=== PATIENT | male | born 1995 | race Two or more races ===

== ENCOUNTER 2024-08-16 13:22 | Inpatient (IN) | payer MEDICAID, OTHER ==
[~2024-08-16] VITALS: Ht 188 cm; Wt 161.1 kg
--- NOTE | 2024-08-16 13:35 | ED.PDOC ---
HPI Comments CRISTEL Calhoun: Poor Historian. 29-year-old male presents to emergency department for evaluation of chest pain 6/10 scale nonradiating constant with the associated shortness of breath. He also presents for evaluation of bilateral lower extremity swelling edema. pt states he has been these symptoms for the past 1 month. Patient denies any past medical history or surgical history. Denies taking any medications. Past Medical History: denies Past Surgical History: denies medications: denies allergies: nkda Social History: endorses tobacco use, denies ETOH use, denies drug use REVIEW OF SYSTEMS: CONSTITUTIONAL: Denies acute: fever, diaphoresis, chills, HEAD: Denies acute: headache, photophobia Eyes: Denies acute: Double vision, vision loss, eye pain, eye discharge. EARS: Denies acute: tinnitus, hearing loss, ear discharge, ear pain, THROAT: Denies acute: sore throat, swelling, difficulty swallowing , pain with swallowing, change in voice. NECK: Denies acute: neck pain, neck swelling, stiff neck. HEART: Denies acute : palpitations, LUNGS: Denies acute: wheezing, cough, hemoptysis ABDOMEN: Denies acute: abdominal pain, Nausea, Vomiting, diarrhea, melena , hematemesis, hematochezia SKIN: Denies acute: rash, redness, lesions, itchiness. EXTREMITIES: Denies acute: calf pain, numbness, tingling, weakness, Denies acute: Low back pain. Neuro: Denies acute: focal neurological deficit, motor or sensory focal neurological deficit, tremors, seizure like activity, confusion, dizziness, change in mental status, loss of bowel or bladder function, cauda equina like symptoms. : Denies acute: dysuria, hematuria, flank pain, increase in urinary frequency. PSYCH: Denies acute: hallucination, suicidal ideation, homicidal ideation. PHYSICAL EXAM: General: mild to moderate acute distress, awake and alert. Head: normocephalic, atraumatic. Neck: supple, trachea is midline, no swelling. Throat: Normal phonation. Eyes:, no erythema, no purulent discharge, no proptosis, no icterus. Heart: regular tachycardia, no significant murmur appreciated. Lungs: no apparent respiratory distress, Able to speak in full sentences. No wheezing, no rhonchi, no crackles. No stridors Clear to auscultation bilaterally. Abdomen: non tender to palpation, non distended, soft, no guarding, no rebound, + bowel sounds. obese Neuro: Awake, Alert, oriented to name, self, situation, follows commands GCS=15. Speech is normal. Skin: no petechia, no purpura, no cyanosis, non-pale, not jaundice. Lower extremities: --4/4 b/l- Pitting edema no deformity, no focal swelling, no calf TTP. Makes eye contact. moves all four extremities. Face: no apparent facial droop. Ambulating in the ED independently. ED COURSE: Chief Complaint: Lower Extremity Time Seen by MD: 13:29 Reviewed Notes: Nurses Notes, Medications, Allergies Allergies: Coded Allergies: NO KNOWN ALLERGIES (Unverified , 08/16/24) Information Source: Patient Mode of Arrival: Ambulatory Was a procedure done? Was a procedure done?: No CP Differential Dx Differential Diagnosis: N/A Differential Diagnosis: Other (Ddx include but not limitied to gastritis, musculoskeletal pain, radiculopathy, atypical chest pain, dissection, aneurysm, ACS, unstable angina, hiatal hernia, GERD, anxiety, costochondritis, PE, pneumothroax, neoplasm, cardiac ischemia, drug abuse, anemia. As far as the shortness of breath Leg swellingDdx include but not limited to DVT, ischemic limb, pitting edema, volume overload, CHF, cellulitis, hematoma, compartment syndrome, dependent edema, venous stasis. As far as the dyspnea DDx include ACS, unstable angina, anxiety, PE, pneumothroax, neoplasm, cardiac ischemia, COPD, asthma, CHF, pleural effusion, tobacco abuse, pneumonia, hypoxia, hypercapnia, anemia., infection/sepsis., pulmonary edema. Asthma, Cardiac tamponade, infection.) X-Ray, Labs, Meds, VS Vital Signs Date Time Temp Pulse Resp B/P (MAP) Pulse Ox O2 Delivery O2 Flow Rate FiO2 08/16/24 16:41 98.0 100 18 139/96 (110) 97 98.0 08/16/24 15:57 149/86 08/16/24 15:29 98.7 88 20 149/86 (107) 97 98.7 08/16/24 15:29 88 20 97 Room Air 08/16/24 15:21 98.7 88 149/96 (113) 97 98.7 08/16/24 13:33 105 08/16/24 13:31 98.0 115 22 154/102 (119) 99 98.0 Lab Test 08/16/24 16:23 08/16/24 14:29 08/16/24 13:46 08/16/24 13:40 Range/Units Troponin I High Sensitivity 30 30 29 </=54 ng/L White Blood Count 6.1 4.4-10.8 10^3/uL Red Blood Count 5.02 4.5-5.90 10^6/uL Hemoglobin 14.4 13.5-17.5 g/dL Hematocrit 44.3 41.0-53.0 % Mean Corpuscular Volume 88.3 80.0-100.0 fL Mean Corpuscular Hemoglobin 28.6 28.0-32.0 pg Mean Corpuscular Hemoglobin Concent 32.4 32.0-36.0 g/dL Red Cell Distribution Width 15.2 H 11.8-14.3 % Platelet Count 250 140-450 10^3/uL Mean Platelet Volume 9.2 6.9-10.8 fL Neutrophils (%) (Auto) 64.1 37.0-80.0 % Lymphocytes (%) (Auto) 24.9 10.0-50.0 % Monocytes (%) (Auto) 6.8 0.0-12.0 % Eosinophils (%) (Auto) 3.1 0.0-7.0 % Basophils (%) (Auto) 1.1 0.0-2.0 % Neutrophils # (Auto) 3.9 1.6-8.6 10 ^3/uL Lymphocytes # (Auto) 1.5 0.4-5.4 10 ^3/uL Monocytes # (Auto) 0.4 0-1.3 10 ^3/uL Eosinophils # (Auto) 0.2 0-0.8 10 ^3/uL Basophils # (Auto) 0.1 0-0.2 10 ^3/uL Nucleated Red Blood Cells 0.0 % Erythrocyte Sedimentation Rate 2 0-20 mm/hr D-Dimer, Quantitative 0.88 H 0.0-0.49 mg/L FEU Sodium Level 142 136-145 mmol/L Potassium Level 4.4 3.5-5.1 mmol/L Chloride Level 110 H 98-107 mmol/L Carbon Dioxide Level 22 20-31 mmol/L Anion Gap 10 5-15 Blood Urea Nitrogen 14 9-23 mg/dL Creatinine 1.04 0.700-1.30 mg/dL Glomerular Filtration Rate Calc 99 >90 mL/min BUN/Creatinine Ratio 13.5 10.0-20.0 Serum Glucose 104 74-106 mg/dL Lactic Acid Level 1.1 0.4-2.0 mmol/L Calcium Level 9.2 8.7-10.4 mg/dL Magnesium Level 1.8 1.6-2.6 mg/dL Total Bilirubin 1.1 H 0.2-1.0 mg/dL Aspartate Amino Transferase (AST) 43 H 13-40 U/L Alanine Aminotransferase (ALT) 75 H 7-40 U/L Alkaline Phosphatase 100 46-116 U/L C-Reactive Protein High Sensitivity 1.95 H <1.0 mg/dL B-Type Natriuretic Peptide 514.50 0-100 pg/mL Total Protein 5.8 5.7-8.2 g/dL Albumin 3.8 3.2-4.8 g/dL Thyroid Stimulating Hormone (TSH) 2.02 0.55-4.78 uIU/mL Hepatitis A IgM Antibody Pending Hepatitis B Surface Antigen Pending Hepatitis B Core IgM Antibody Pending Hepatitis C Antibody Pending Urine Color Yellow Yellow Urine Clarity Clear Clear Urine pH 6.0 5.0-9.0 Urine Specific [place] 1.014 1.001-1.035 Urine Protein 1+ H Negative Urine Ketones Negative Negative Urine Blood Negative Negative /uL Urine Nitrite Negative Negative Urine Bilirubin Negative Negative Urine Urobilinogen 3 H Negative mg/dL Urine Leukocyte Esterase Negative Negative /uL Urine RBC <1 0 - 3 /hpf Urine Microscopic WBC 2 0-3 /HPF Urine Squamous Epithelial Cells None seen <5 /hpf Urine Bacteria None seen None Seen /hpf Urine Glucose Normal Normal mg/dL Urine Opiates Screen Neg NEGATIVE Urine Fentanyl Screen Neg NEGATIVE Urine Barbiturates Screen Neg NEGATIVE Urine Phencyclidine Screen Neg NEGATIVE Urine Amphetamines Screen Neg NEGATIVE Urine Benzodiazepines Screen Neg NEGATIVE Urine Cocaine Screen Neg NEGATIVE Urine Cannabinoids Screen Neg NEGATIVE Current Medications Medications (Trade) Dose Ordered Sig/Bob Route Start Time Stop Time Status Last Admin Furosemide (Lasix Injection) 60 mg ONCE ONCE IV 08/16/24 15:30 08/16/24 15:38 DC 08/16/24 15:57 Aspirin (Ecotrin Enteric Coated Tablet) 325 mg ONCE ONCE PO 08/16/24 15:30 08/16/24 15:38 DC 08/16/24 15:55 [place] [id number] Ph: [phone] DIAGNOSTIC IMAGING Diagnostic Imaging Report : [id number] Signed PATIENT: CATRINA CALHOUN ACCT: [id number] UNIT: [id number] : 1995 LOC: ER ROOM / BED: / AGE / SEX: 29 / M ADM STATUS: REG ER SERVICE [id number] ORDERING PHYSICIAN: CHRIS CANTU DO PROCEDURE(s): CTACH - CT ANGIO CHEST CONTRAST REASON: cp/sob ORDER NUMBER(s): [id number], ACCESSION NUMBER(s): [id number] CTA Chest with intravenous contrast INDICATION: cp/sob COMPARISON: Chest x-ray 08/16/2024 TECHNIQUE: Multidetector spiral CTA of the chest was performed of the chest with intravenous contrast. PULMONARY ANGIOGRAPHY PROTOCOL was utilized using a bolus- tracking technique centered on the main pulmonary artery. Axial, coronal and sagittal multiplanar and MIP reformats were performed. Radiation Dose : 1. Chest: CTDI volume is 68 mGy. Dose-length product is 1145 mGy*cm Contrast: 85 mL omni [address] dose [address] are the volume Computed Tomography (CT) Dose Index (CTDIvol) and the Dose Length Product (DLP), and are measured in units of mGy and mGy-cm, respectively. These indicators are not patient dose, but values generated from the CT scanner acquisition factors. The report includes radiation exposure data for exposures received during this examination. Findings: Pulmonary artery: No central, main, or lobar pulmonary emboli. Suboptimal evaluation of the segmental / subsegmental pulmonary due to contrast bolus timing and respiratory motion artifact. Lower neck: Thyroid is poorly delineated from adjacent structures. Lungs: No focal consolidation, pleural effusion or pneumothorax. Scattered bilateral sub 6 mm pulmonary nodules, the largest measuring up to 5 mm in the right middle lobe (series 3, image 62). Heart/Vascular Structures: Moderate cardiomegaly. There is a small to moderate pericardial effusion with fluid mostly along the right heart border measuring up to 2.4 cm at that site. Lymph Nodes: No adenopathy Pleura: No pleural effusion or significant pneumothorax. Musculoskeletal: No acute osseous abnormality. Soft tissues: Skin thickening over the right upper / lateral chest. There is diffuse body wall edema in the visualized upper abdomen. Upper abdomen: There is reflux of contrast material into the IVC and hepatic veins. IMPRESSION: No large pulmonary embolism. Suboptimal evaluation of the segmental / subsegmental pulmonary arterial branches due to contrast timing and motion artifact. Moderate cardiomegaly. There is also a small to moderate pericardial effusion that is mostly along the right heart border. Reflux of contrast into the IVC and hepatic vein. This can be seen with right- sided heart failure or can also be related to artifact. Skin thickening along the right upper/ lateral chest wall. Recommend direct visualization. There is also body wall edema in the visualized upper abdomen. Multiple bilateral sub 6 mm pulmonary nodules. Consider optional CT chest in 12 months if at high risk for malignancy per Fleischner criteria. ATED BY: DESIRE HALL DO DICTATED DATE/TIME: 08/16/241627 SIGNED BY: DESIRE HALL DO SIGNED DATE/TIME: 08/16/241627 CC: [place] [address] Ph: [phone] DIAGNOSTIC IMAGING Diagnostic Imaging Report : [id number] Signed PATIENT: CATRINA CALHOUN ACCT: [id number] UNIT: [id number] : 1995 LOC: ER ROOM / BED: / AGE / SEX: 29 / M ADM STATUS: REG ER SERVICE [id number] ORDERING PHYSICIAN: CHRIS CANTU DO PROCEDURE(s): BLDVT - BiLat Lower DVT REASON: swelling sob/cp ORDER NUMBER(s): [id number], ACCESSION NUMBER(s): [id number] Bilateral lower extremity venous duplex Clinical History: swelling sob/cp Comparison: None Technique: Duplex Doppler evaluation of the deep venous systems of both lower extremities from the common femoral veins to the popliteal veins including color Doppler and spectral/pulsed waveform analysis was performed. Findings: RIGHT SIDE: The common femoral vein demonstrates appropriate compressibility and waveform variability. There is compressibility/patency of the great saphenous vein at the proximal thigh. The femoral vein demonstrates appropriate compressibility and waveform variability. The deep femoral vein demonstrates appropriate compressibility and waveform variability. The popliteal vein demonstrates appropriate compressibility and waveform variability. There is normal compressibility at the tibioperoneal trunk. LEFT SIDE: The common femoral vein demonstrates appropriate compressibility and waveform variability. There is compressibility/patency of the great saphenous vein at the proximal thigh. The femoral vein demonstrates appropriate compressibility and waveform variability. MID LEFT FEMORAL VEIN NOT VISUALIZED The deep femoral vein demonstrates appropriate compressibility and waveform variability. The popliteal vein demonstrates appropriate compressibility and waveform variability. There is normal compressibility at the tibioperoneal trunk. Impression: 1. No right or left femoropopliteal venous thrombosis. 2. MID LEFT FEMORAL VEIN NOT VISUALIZED. 3. Study difficult due to patient body habitus. HS:Y ATED BY: LEELA JAIN Jr., DO DICTATED DATE/TIME: 08/16/241414 SIGNED BY: LEELA JAIN Jr., SIGNED DATE/TIME: 08/16/241414 CC: [place] [id number] Ph: [phone] DIAGNOSTIC IMAGING Diagnostic Imaging Report : [id number] Signed PATIENT: CATRINA CALHOUN ACCT: [id number] UNIT: [id number] : 1995 LOC: ER ROOM / BED: / AGE / SEX: 29 / M ADM STATUS: REG ER SERVICE [facility] ORDERING PHYSICIAN: CHRIS CANTU DO PROCEDURE(s): CXRP - CHEST PORTABLE REASON: sob/cp ORDER NUMBER(s): [id number], ACCESSION NUMBER(s): [id number] CHEST RADIOGRAPH Indication: sob/cp Technique: Single frontal view of the chest was obtained Comparison: None FINDINGS: Lines and Tubes: None Lungs: No focal consolidation. Pleura: No effusion. No pneumothorax. Cardiomediastinal contours: Cardiomegaly without findings of congestive failure. Correlate for possible cardiomyopathy or pericardial effusion. Bones: No acute osseous abnormality. IMPRESSION: 1. Cardiomegaly without congestive failure. Correlate for possible cardiomyopathy or pericardial effusion. HS:Y ATED BY: LEELA JAIN Jr., DO DICTATED DATE/TIME: 08/16/241407 SIGNED BY: LEELA JAIN Jr., SIGNED DATE/TIME: 08/16/241407 CC: Time of 1ST Reevaluation: 21:17 Reevaluation 1ST: Improved Patient Education/Counseling: Diagnosis, Treatment Family Education/Counseling: No Family Present Comments Patient presented with the above HPI.-dyspnea/cardiac/leg swelling-----workup was initiated. patient was found with the above mentioned diagnosis. the following medications were ordered: please refer to order lists of meds and tests obtained by myself Dr. Cantu. Patient ED course and VS have been stabilized. Patient has been reassessed in the ED and remained in a stable condition. Pertinent incidental findings were discussed with the patient and/or family. Patient/family voices understanding and is agreeable with plan. Patient has been observed in the ED adequate length of time to insure improvement/stability. Escalation of care considered: Consideration of escalation to observation or admission Patient was ADMITTED to the medicine team for further evaluation and treatment of their presentation. All the reports of any imaging studies that were ordered by myself were reviewed by myself. Departure 1 Departure Time of Disposition: 15:34 Impression: Primary Impression: Chest pain at rest Additional Impressions: Dyspnea Leg swelling Pitting edema Pericardial effusion Pulmonary nodules Disposition: ADMITTED INPATIENT Admit to: [facility] Condition: Guarded Discharged With: Self Critical Care Note Critical Care Time?: Yes (55 min-critical care time only) Heart Score Heart Score: Heart Score Response (Comments) Value History Moderate Suspicious 1 EKG Normal 0 Age <45 0 Risk Factors No known risk factors 0 Troponin Normal limit 0 Total 1 I personally scribed for CHRIS CANTU DO ([email or web address]) on 08/16/24 at 13:35. Electronically submitted by Dulce Kim ([email or web address]). I personally scribed for CHRIS CANTU DO ([email or web address]) on 08/16/24 at 14:05. Electronically submitted by Dulce Kim ([email or web address]). I personally scribed for CHRIS CANTU DO ([email or web address]) on 08/16/24 at 16:37. Electronically submitted by Dulce Kim ([facility]). CHRIS CANTU DO Aug 16, 2024 13:35
--- NOTE | 2024-08-16 14:11 | DVH ---
CHEST RADIOGRAPH Indication: sob/cp Technique: Single frontal view of the chest was obtained Comparison: None FINDINGS: Lines and Tubes: None Lungs: No focal consolidation. Pleura: No effusion. No pneumothorax. Cardiomediastinal contours: Cardiomegaly without findings of congestive failure. Correlate for poss ible cardiomyopathy or pericardial effusion. Bones: No acute osseous abnormality. IMPRESSION: 1. Cardiomegaly without congestive failure. Correlate for possible cardiomyopathy or pericardial effu kellee. HS:Y
[2024-08-16 14:15] LABS: Alanine Aminotransferase 75 U/L (7-40); Albumin 3.8 g/dL (3.2-4.8); Alkaline Phosphatase 100 U/L (46-116); Anion Gap 10 (5-15); Aspartate Aminotransferase 43 U/L (13-40); BUN/Creatinine Ratio 13.5 (10.0-20.0); Bilirubin, Total 1.1 mg/dL (0.2-1.0); Blood Urea Nitrogen 14 mg/dL (9-23); Calcium 9.2 mg/dL (8.7-10.4); Carbon Dioxide 22 mmol/L (20-31); Chloride 110 mmol/L (98-107); Glucose 104 mg/dL (74-106); Potassium 4.4 mmol/L (3.5-5.1); Sodium 142 mmol/L (136-145); Total Protein 5.8 g/dL (5.7-8.2)
--- NOTE | 2024-08-16 14:18 | DVH ---
Bilateral lower extremity venous duplex Clinical History: swelling sob/cp Comparison: None Technique: Duplex Doppler evaluation of the deep venous systems of both lower extremities from the common femora l veins to the popliteal veins including color Doppler and spectral/pulsed waveform analysis was perf ormed. Findings: RIGHT SIDE: The common femoral vein demonstrates appropriate compressibility and waveform variability. There is compressibility/patency of the great saphenous vein at the proximal thigh. The femoral vein demonstrates appropriate compressibility and waveform variability. The deep femoral vein demonstrates appropriate compressibility and waveform variability. The popliteal vein demonstrates appropriate compressibility and waveform variability. There is normal compressibility at the tibioperoneal trunk. LEFT SIDE: The common femoral vein demonstrates appropriate compressibility and waveform variability. There is compressibility/patency of the great saphenous vein at the proximal thigh. The femoral vein demonstrates appropriate compressibility and waveform variability. MID LEFT FEMORAL VEIN NOT VISUALIZED The deep femoral vein demonstrates appropriate compressibility and waveform variability. The popliteal vein demonstrates appropriate compressibility and waveform variability. There is normal compressibility at the tibioperoneal trunk. Impression: 1. No right or left femoropopliteal venous thrombosis. 2. MID LEFT FEMORAL VEIN NOT VISUALIZED. 3. Study difficult due to patient body habitus. HS:Y
[2024-08-16 14:25] LABS: CRP High Sensitivity 1.95 mg/dL (<1.0)
[2024-08-16 14:35] LABS: Erythrocyte Sedimentation Rate 2 mm/hr (0-20)
[2024-08-16 15:14] LABS: Basophils # (auto) 0.1 10 ^3/uL (0-0.2); Basophils % (auto) 1.1 % (0.0-2.0); Eosinophils # (auto) 0.2 10 ^3/uL (0-0.8); Eosinophils % (auto) 3.1 % (0.0-7.0); Hematocrit 44.3 % (41.0-53.0); Hemoglobin 14.4 g/dL (13.5-17.5); Lymphocytes # (auto) 1.5 10 ^3/uL (0.4-5.4); Lymphocytes % (auto) 24.9 % (10.0-50.0); Mean Corpuscular Hemoglobin 28.6 pg (28.0-32.0); Mean Corpuscular Hgb Conc. 32.4 g/dL (32.0-36.0); Mean Corpuscular Volume 88.3 fL (80.0-100.0); Monocytes # (auto) 0.4 10 ^3/uL (0-1.3); Monocytes % (auto) 6.8 % (0.0-12.0); Neutrophils # (auto) 3.9 10 ^3/uL (1.6-8.6); Neutrophils % (auto) 64.1 % (37.0-80.0); Platelet Count (auto) 250 10^3/uL (140-450); Red Blood Cells 5.02 10^6/uL (4.5-5.90); Red Cell Distribution Width 15.2 % (11.8-14.3); White Blood Cell 6.1 10^3/uL (4.4-10.8)
[2024-08-16] MEDS: IOHEXOL 350 MG/ML 100ML IJ ONE (15:40)
[2024-08-16] MEDS: ASPirin-EC 325mg tab PO ONE (15:55)
[2024-08-16] MEDS: FUROSEMIDE 100 MG/10ML VIAL IV ONE (15:57)
--- NOTE | 2024-08-16 16:30 | DVH ---
CTA Chest with intravenous contrast INDICATION: cp/sob COMPARISON: Chest x-ray 08/16/2024 TECHNIQUE: Multidetector spiral CTA of the chest was performed of the chest with intravenous contrast . PULMONARY ANGIOGRAPHY PROTOCOL was utilized using a bolus-tracking technique centered on the main p ulmonary artery. Axial, coronal and sagittal multiplanar and MIP reformats were performed. Radiation Dose : 1. Chest: CTDI volume is 68 mGy. Dose-length product is 1145 mGy*cm Contrast: 85 mL omni [address] dose [address] are the volume Computed Tomography (CT) Dose Index (CTDIvol) and the Dose Length Product (DLP), and are measured in units of mGy and mGy-cm, respectively. These indicators are not patient dose, but values generated from the CT scanner acquisition factors. The report includes radiation exposure data for exposures received during this examination. Findings: Pulmonary artery: No central, main, or lobar pulmonary emboli. Suboptimal evaluation of the segmental / subsegmental p ulmonary due to contrast bolus timing and respiratory motion artifact. Lower neck: Thyroid is poorly delineated from adjacent structures. Lungs: No focal consolidation, pleural effusion or pneumothorax. Scattered bilateral sub 6 mm pulmona ry nodules, the largest measuring up to 5 mm in the right middle lobe (series 3, image 62). Heart/Vascular Structures: Moderate cardiomegaly. There is a small to moderate pericardial effusion w ith fluid mostly along the right heart border measuring up to 2.4 cm at that site. Lymph Nodes: No adenopathy Pleura: No pleural effusion or significant pneumothorax. Musculoskeletal: No acute osseous abnormality. Soft tissues: Skin thickening over the right upper / lateral chest. There is diffuse body wall edema in the visualized upper abdomen. Upper abdomen: There is reflux of contrast material into the IVC and hepatic veins. IMPRESSION: No large pulmonary embolism. Suboptimal evaluation of the segmental / subsegmental pulmonary arteria l branches due to contrast timing and motion artifact. Moderate cardiomegaly. There is also a small to moderate pericardial effusion that is mostly along t he right heart border. Reflux of contrast into the IVC and hepatic vein. This can be seen with right-sided heart failure or can also be related to artifact. Skin thickening along the right upper/ lateral chest wall. Recommend direct visualization. There is also body wall edema in the visualized upper abdomen. Multiple bilateral sub 6 mm pulmonary nodules. Consider optional CT chest in 12 months if at high ris k for malignancy per Fleischner criteria.
[2024-08-16 16:46] LABS: Urine Bacteria None Seen /hpf (None Seen)
[2024-08-16 16:56] LABS: Urine Blood Negative /uL (Negative); Urine Clarity Clear (Clear); Urine Color Yellow (Yellow); Urine Protein, UAD 1+ (Negative); Urine Specific Gravity 1.014 (1.001-1.035); Urine Squamous Epithelial Cell None Seen /hpf (<5); Urine Urobilinogen 3 mg/dL (Negative); Urine WBC 2 /HPF (0-3)
[2024-08-16 17:14] LABS: Amphetamine Screen, Urine Neg (NEGATIVE); Barbiturate Scree,Urine Neg (NEGATIVE); Benzodiazephine Screen, Urine Neg (NEGATIVE); Cannabinoid Screen, Urine Neg (NEGATIVE); Cocaine Screen, Urine Neg (NEGATIVE); Opiate Scree,Urine Neg (NEGATIVE); Phencyclidine Screen, Urine Neg (NEGATIVE)
[2024-08-16] MEDS ORDERED: NITROGLYCERIN 0.4 MG SL TAB SL PRN (19:30)
--- NOTE | 2024-08-16 19:34 | DVHHP2 ---
History of Present Illness Reason for Visit: chestpain and shortness of the breath History of Present Illness 29-year-old male no medical problems no surgical history chief complaint patient states he has been having some chest pain and shortness of the breath. He has also complains of bilateral lower extremity edema has been going on for about a month now. Patient states the shortness of the breath has been so bad that he had this quit his job. He states he quit his job three days ago due to when he walks he has a sit down he starts getting dizzy and he has chest pain. He does state his pain is midsternal. Nothing makes it better nothing makes it worse. He states he has not seen a primary doctor in greater than 10 years. Patient states he does smoke. He also states he lives in his car. He comes to the ER for concern. When evaluating patient's labs and imaging CBC was unremarkable CMP showed mild elevation of liver enzymes with the patient does admit that he used to drink pretty heavy he stopped about a year ago. Patient has a CRP of 1.95 troponin x3 was negative D-dimer was elevated so CT angio was pursued and found to have negative for PE but evidence of right heart failure. Chest x-ray shows cardiomegaly. With these findings we will admit and ask for Cardiology evaluation. Also ask social sciences research scientist for discharge planning since patient is homeless and sleeping in his car. Past Medical History denies any medical problems Past Surgical History denies any surgical history Family History Reviewed, non-contributory to the management of this case. Past Social History Patient does smoke by history states stopped drinking about a year ago. Denies any drug use Review of Systems Constitutional: No: Fever, Chills, Sweats, Weakness, Malaise, Other Eyes: No: Pain, Vision change, Conjunctivae inflammation, Eyelid inflammation, Other, Redness ENT: No: Ear pain, Ear discharge, Nose pain, Nose discharge, Nose congestion, Mouth pain, Mouth swelling, Throat pain, Throat swelling, Other Respiratory: Shortness of breath, SOB with excertion; No: Cough, Dry, Wheezing, Hemoptysis, Pleuritic Pain, Sputum, Wheezing, Other Cardiovascular: Chest Pain; No: Palpitations, Orthopnea, Paroxysmal Noc. Dyspnea, Edema, Lt Headedness, Other Gastrointestinal: No: Nausea, Vomiting, Abdominal Pain, Diarrhea, Constipation, Melena, Hematochezia, Other Genitourinary: No Dysuria, No Frequency, No Incontinence, No Hematuria, No Retention, No Other Musculoskeletal: No: other, neck pain, shoulder pain, arm pain, back pain, hand pain, leg pain, foot pain Skin: No: Rash, Lesions, Jaundice, Bruising, Other Neurological: No: Weakness, Numbness, Incoordination, Change in speech, Confusion, Seizures, Other Allergies: Coded Allergies: NO KNOWN ALLERGIES (Unverified , 08/16/24) Exam Vital Signs Vital Signs Date Time Temp Pulse Resp B/P (MAP) Pulse Ox O2 Delivery O2 Flow Rate FiO2 08/16/24 16:41 98.0 100 18 139/96 (110) 97 98.0 08/16/24 15:29 Room Air General Appearance: Alert, Oriented X3, Cooperative, No acute distress HEENT: Atraumatic, PERRLA, EOMI, Mucous membr. moist/pink Respiratory: Other (Diminished lung sounds throughout) Cardiovascular: Regular rate, Normal S1, Normal S2, No murmurs Abdominal: Normal bowel sounds, Soft, No tenderness, No hepatospenomegaly, No masses Extremities: No clubbing, No cyanosis, Normal pulses, No tenderness/swelling, Other (Bilateral lower extremity with edema) Skin: No rashes, No breakdown, No significant lesion Neuro: Normal gait, Normal speech, Strength at 5/5 X4 ext, Normal tone, Sensation intact, Cranial nerves 3-12 NL Psych/Mental Status: Mental status NL, Mood NL Labs/Xrays Chest x-ray shows cardiomegaly CT scan of the chest negative for PE but does shows evidence of heart failure r ight sided I reviewed labs, imaging CT scan abdomen pelvis, EKG and all diagnostic studies on this patient from ED records and the medical chart Labs Test 08/16/24 16:23 08/16/24 14:29 08/16/24 13:46 08/16/24 13:40 Range/Units Troponin I High Sensitivity 30 </=54 ng/L White Blood Count 6.1 4.4-10.8 10^3/uL Red Blood Count 5.02 4.5-5.90 10^6/uL Hemoglobin 14.4 13.5-17.5 g/dL Hematocrit 44.3 41.0-53.0 % Mean Corpuscular Volume 88.3 80.0-100.0 fL Mean Corpuscular Hemoglobin 28.6 28.0-32.0 pg Mean Corpuscular Hemoglobin Concent 32.4 32.0-36.0 g/dL Red Cell Distribution Width 15.2 H 11.8-14.3 % Platelet Count 250 140-450 10^3/uL Mean Platelet Volume 9.2 6.9-10.8 fL Neutrophils (%) (Auto) 64.1 37.0-80.0 % Lymphocytes (%) (Auto) 24.9 10.0-50.0 % Monocytes (%) (Auto) 6.8 0.0-12.0 % Eosinophils (%) (Auto) 3.1 0.0-7.0 % Basophils (%) (Auto) 1.1 0.0-2.0 % Neutrophils # (Auto) 3.9 1.6-8.6 10 ^3/uL Lymphocytes # (Auto) 1.5 0.4-5.4 10 ^3/uL Monocytes # (Auto) 0.4 0-1.3 10 ^3/uL Eosinophils # (Auto) 0.2 0-0.8 10 ^3/uL Basophils # (Auto) 0.1 0-0.2 10 ^3/uL Nucleated Red Blood Cells 0.0 % Erythrocyte Sedimentation Rate 2 0-20 mm/hr D-Dimer, Quantitative 0.88 H 0.0-0.49 mg/L FEU Sodium Level 142 136-145 mmol/L Potassium Level 4.4 3.5-5.1 mmol/L Chloride Level 110 H 98-107 mmol/L Carbon Dioxide Level 22 20-31 mmol/L Anion Gap 10 5-15 Blood Urea Nitrogen 14 9-23 mg/dL Creatinine 1.04 0.700-1.30 mg/dL Glomerular Filtration Rate Calc 99 >90 mL/min BUN/Creatinine Ratio 13.5 10.0-20.0 Serum Glucose 104 74-106 mg/dL Lactic Acid Level 1.1 0.4-2.0 mmol/L Calcium Level 9.2 8.7-10.4 mg/dL Total Bilirubin 1.1 H 0.2-1.0 mg/dL Aspartate Amino Transferase (AST) 43 H 13-40 U/L Alanine Aminotransferase (ALT) 75 H 7-40 U/L Alkaline Phosphatase 100 46-116 U/L C-Reactive Protein High Sensitivity 1.95 H <1.0 mg/dL B-Type Natriuretic Peptide 514.50 0-100 pg/mL Total Protein 5.8 5.7-8.2 g/dL Albumin 3.8 3.2-4.8 g/dL Urine Color Yellow Yellow Urine Clarity Clear Clear Urine pH 6.0 5.0-9.0 Urine Specific [place] 1.014 1.001-1.035 Urine Protein 1+ H Negative Urine Ketones Negative Negative Urine Blood Negative Negative /uL Urine Nitrite Negative Negative Urine Bilirubin Negative Negative Urine Urobilinogen 3 H Negative mg/dL Urine Leukocyte Esterase Negative Negative /uL Urine RBC <1 0 - 3 /hpf Urine Microscopic WBC 2 0-3 /HPF Urine Squamous Epithelial Cells None seen <5 /hpf Urine Bacteria None seen None Seen /hpf Urine Glucose Normal Normal mg/dL Urine Opiates Screen Neg NEGATIVE Urine Fentanyl Screen Neg NEGATIVE Urine Barbiturates Screen Neg NEGATIVE Urine Phencyclidine Screen Neg NEGATIVE Urine Amphetamines Screen Neg NEGATIVE Urine Benzodiazepines Screen Neg NEGATIVE Urine Cocaine Screen Neg NEGATIVE Urine Cannabinoids Screen Neg NEGATIVE Assessment/Plan Assessment/Plan acute new onset congested heart failure with cardiomegaly found on ct scan no pe ordered echo fu results ordered Lasix, asa. atorvastatin metoprolol strict i/o's bnp 534 cards consult fu recs restrict sodium daily wt acute chest pain r/o nstemi trop negative x2 ekg no stemi ordered echo ordered cards consult fu recs acute transaminitis likely from etoh use pt used to be chronic drinker last drink 1 yr ago ordered us fu results consider gi if abnormal results ordered hepatitis panel acute ble edema us negative for dvt elevation ordered lasix acute homelessness pt sleeping in car sw consult fu recs chronic smoker enc abstience hx of etoh abuse last use 1 yr ago fen/ppx diet scd no gi ppx since no hx of gerds or gi bleed hl plan admit to tele cards consult fu recs Plan discussed with: Patient Date of Service: Aug 16, 2024 Billing Provider: ELIAS COLLIER DNP Common Visit Codes: [id number] INP/OBS CARE (HIGH) ELIAS COLLIER DNP Aug 16, 2024 19:34
--- NOTE | 2024-08-16 21:32 | DVH ---
INDICATION: acute upper abd pain with transaminitis TECHNIQUE: Multiple real-time sonographic images of the abdomen were obtained. COMPARISON: None FINDINGS: Technically limited examination due to habitus. The liver is homogenous in echogenicity and measures 16.8 cm. No intrahepatic biliary ductal dilatat ion is noted. No hepatic masses masses were seen. The gallbladder wall measures 2 mm. There is no cholelithiasis seen. The common duct measures 6 mm . No pericholecystic fluid. The right kidney measures 10.4 cm. The right renal echogenicity, contour and cortical thickness are within normal limits. The imaged portion of the pancreas is unremarkable. IMPRESSION: 1. No sonographic evidence for cholelithiasis. 2. Borderline hepatomegaly.
[2024-08-16 22:30] VITALS: BP 136/97; PULSE 105; RESP 18; TEMP 97.7; O2SAT 96
[2024-08-16] MEDS: ATORVASTATIN 20 MG TAB PO SCH (23:32)
[2024-08-16] MEDS: METOPROLOL TARTRATE 25 MG TAB PO SCH (23:33)
[2024-08-16] MEDS: FUROSEMIDE 40 MG/4 ML VIAL IV ONE (23:34)
[2024-08-17] VITALS (9 sets, daily range): BP systolic 104–151; BP diastolic 64–97; PULSE 80–121; RESP 17–18; TEMP 97.3–97.8; O2SAT 94–100
[2024-08-17 07:11] LABS: Basophils # (auto) 0 10 ^3/uL (0-0.2); Basophils % (auto) 0.8 % (0.0-2.0); Eosinophils # (auto) 0.3 10 ^3/uL (0-0.8); Hematocrit 42.7 % (41.0-53.0); Hemoglobin 13.9 g/dL (13.5-17.5); Lymphocytes # (auto) 1.8 10 ^3/uL (0.4-5.4); Lymphocytes % (auto) 30.7 % (10.0-50.0); Mean Corpuscular Hemoglobin 28.7 pg (28.0-32.0); Mean Corpuscular Hgb Conc. 32.5 g/dL (32.0-36.0); Mean Corpuscular Volume 88.3 fL (80.0-100.0); Monocytes # (auto) 0.5 10 ^3/uL (0-1.3); Monocytes % (auto) 8.7 % (0.0-12.0); Neutrophils # (auto) 3.2 10 ^3/uL (1.6-8.6); Neutrophils % (auto) 54.8 % (37.0-80.0); Nucleated Red Blood Cells % 0.2 %; Platelet Count (auto) 235 10^3/uL (140-450); Red Blood Cells 4.83 10^6/uL (4.5-5.90); Red Cell Distribution Width 15.4 % (11.8-14.3); White Blood Cell 5.9 10^3/uL (4.4-10.8)
[2024-08-17 07:41] LABS: Albumin 3.5 g/dL (3.2-4.8); Alkaline Phosphatase 71 U/L (46-116); Anion Gap 10 (5-15); Aspartate Aminotransferase 36 U/L (13-40); Blood Urea Nitrogen 11 mg/dL (9-23); Calcium 9.4 mg/dL (8.7-10.4); Carbon Dioxide 25 mmol/L (20-31); Chloride 106 mmol/L (98-107); Glucose 94 mg/dL (74-106); Sodium 141 mmol/L (136-145); Total Protein 5.7 g/dL (5.7-8.2)
[2024-08-17 07:44] LABS: Alanine Aminotransferase 58 U/L (7-40); Bilirubin, Total 1.2 mg/dL (0.2-1.0)
[2024-08-17] MEDS: ASPirin 81 mg TAB PO SCH (09:30)
--- NOTE | 2024-08-17 12:55 | DVHINCON2 ---
Date Seen: Aug 17, 2024 Referring Physician Favian SERRANO Reason for Consultation New onset CHF History of Present Illness This 29 year male with no significant past medical history presents in the ED with a chief complaint of shortness of breath. The patient reports progressive shortness of breath for the past two weeks. Symptoms is associated with sharp chest pain worse on exertion and inhalation, dyspnea, orthopnea, and bilateral lower extremity edema. In the emergency department the patient underwent a 12 lead ECG revealing sinus rhythm with prolonged QTC. Upon assessment, the patient denies dizziness, diaphoresis, or chest pain. Denies history of CAD or [place]. Denies familiar history of cardiovascular disease. Past medical history includes tobacco use and morbid obesity. Past Medical History As stated in HPI Past Surgical History Denies Family History: Patient reports no known family medical history. Family History Reviewed, non-contributory to the management of this case. Social History Tobacco use quit two days ago Allergies: Coded Allergies: NO KNOWN ALLERGIES (Unverified , 08/16/24) Home Meds No Active Prescriptions or Reported Meds Current Medications Current Medications Medications (Trade) Dose Ordered Sig/Bob Route PRN Reason Start Time Stop Time Status Last Admin Atorvastatin Calcium (Lipitor) 20 mg HS PO 08/16/24 22:00 08/16/24 23:32 Metoprolol Tartrate (Lopressor Tablet) 25 mg BID PO 08/16/24 22:00 08/17/24 09:30 Nitroglycerin (Ntrostat Sublingual) 0.4 mg Q5MINP PRN SL FOR CHEST PAIN 08/16/24 19:30 Aspirin 81 mg DAILY PO 08/17/24 10:00 08/17/24 09:30 Review of Systems Constitutional: No symptom reported Ears, Nose, & Throat: No symptom reported Eyes: No symptom reported Neurological: No symptoms reported Pulmonary/Respiratory: Shortness of breath Cardiovascular: Dyspnea, edema, chest pain Gastrointestinal: No symptom reported Genitourinary: No symptom reported Musculoskeletal: No symptom reported Skin: No symptom reported Psychiatric: No symptom reported Endocrine: No symptom reported Hemotologic/Lymphatic: No symptom reported Vital Signs Vital Signs Date Time Temp Pulse Resp B/P (MAP) Pulse Ox O2 Delivery O2 Flow Rate FiO2 08/17/24 11:56 97.6 80 17 125/78 (94) 97 97.6 08/17/24 08:00 Room Air* 0 21 Physical Exam INITIAL VITAL SIGNS: Reviewed by me GENERAL: Alert and interactive. No acute distress. Obese HEAD: Head is normocephalic and atraumatic. EYES: EOMI, PERRL. No scleral icterus. No conjunctival injection. ENT: Moist mucous membranes. NECK: Supple, No masses, Full range of motion. RESPIRATORY: No tachypnea. Clear breath sounds bilaterally. No wheezing, rales, rhonchi. CV: Regular rate and rhythm. Dyspnea on exertion, bilateral lower extremity nonpitting edema GI/: Active bowel sounds, soft, nondistended, nontender. No guarding. No rebound. No masses. No CVA tenderness. INTEGUMENTARY: Warm and dry. No obvious rashes. NEUROLOGIC: Alert and oriented. Face is symmetric. Speech is normal. Moves all extremities equally. Labs/Diagnostic Data Labs Test 08/17/24 06:39 08/16/24 23:53 08/16/24 13:46 08/16/24 13:40 Range/Units White Blood Count 5.9 4.4-10.8 10^3/uL Red Blood Count 4.83 4.5-5.90 10^6/uL Hemoglobin 13.9 13.5-17.5 g/dL Hematocrit 42.7 41.0-53.0 % Mean Corpuscular Volume 88.3 80.0-100.0 fL Mean Corpuscular Hemoglobin 28.7 28.0-32.0 pg Mean Corpuscular Hemoglobin Concent 32.5 32.0-36.0 g/dL Red Cell Distribution Width 15.4 H 11.8-14.3 % Platelet Count 235 140-450 10^3/uL Mean Platelet Volume 9.1 6.9-10.8 fL Neutrophils (%) (Auto) 54.8 37.0-80.0 % Lymphocytes (%) (Auto) 30.7 10.0-50.0 % Monocytes (%) (Auto) 8.7 0.0-12.0 % Eosinophils (%) (Auto) 5.0 0.0-7.0 % Basophils (%) (Auto) 0.8 0.0-2.0 % Neutrophils # (Auto) 3.2 1.6-8.6 10 ^3/uL Lymphocytes # (Auto) 1.8 0.4-5.4 10 ^3/uL Monocytes # (Auto) 0.5 0-1.3 10 ^3/uL Eosinophils # (Auto) 0.3 0-0.8 10 ^3/uL Basophils # (Auto) 0 0-0.2 10 ^3/uL Nucleated Red Blood Cells 0.2 % Sodium Level 141 136-145 mmol/L Potassium Level 4.0 3.5-5.1 mmol/L Chloride Level 106 98-107 mmol/L Carbon Dioxide Level 25 20-31 mmol/L Anion Gap 10 5-15 Blood Urea Nitrogen 11 9-23 mg/dL Creatinine 1.00 0.700-1.30 mg/dL Glomerular Filtration Rate Calc 104 >90 mL/min BUN/Creatinine Ratio 11.0 10.0-20.0 Serum Glucose 94 74-106 mg/dL Calcium Level 9.4 8.7-10.4 mg/dL Total Bilirubin 1.2 H 0.2-1.0 mg/dL Aspartate Amino Transferase (AST) 36 13-40 U/L Alanine Aminotransferase (ALT) 58 H 7-40 U/L Alkaline Phosphatase 71 46-116 U/L B-Type Natriuretic Peptide 580.05 0-100 pg/mL Total Protein 5.7 5.7-8.2 g/dL Albumin 3.5 3.2-4.8 g/dL Troponin I High Sensitivity 42 </=54 ng/L Erythrocyte Sedimentation Rate 2 0-20 mm/hr D-Dimer, Quantitative 0.88 H 0.0-0.49 mg/L FEU Lactic Acid Level 1.1 0.4-2.0 mmol/L Magnesium Level 1.8 1.6-2.6 mg/dL C-Reactive Protein High Sensitivity 1.95 H <1.0 mg/dL Thyroid Stimulating Hormone (TSH) 2.02 0.55-4.78 uIU/mL Urine Color Yellow Yellow Urine Clarity Clear Clear Urine pH 6.0 5.0-9.0 Urine Specific [place] 1.014 1.001-1.035 Urine Protein 1+ H Negative Urine Ketones Negative Negative Urine Blood Negative Negative /uL Urine Nitrite Negative Negative Urine Bilirubin Negative Negative Urine Urobilinogen 3 H Negative mg/dL Urine Leukocyte Esterase Negative Negative /uL Urine RBC <1 0 - 3 /hpf Urine Microscopic WBC 2 0-3 /HPF Urine Squamous Epithelial Cells None seen <5 /hpf Urine Bacteria None seen None Seen /hpf Urine Glucose Normal Normal mg/dL Urine Opiates Screen Neg NEGATIVE Urine Fentanyl Screen Neg NEGATIVE Urine Barbiturates Screen Neg NEGATIVE Urine Phencyclidine Screen Neg NEGATIVE Urine Amphetamines Screen Neg NEGATIVE Urine Benzodiazepines Screen Neg NEGATIVE Urine Cocaine Screen Neg NEGATIVE Urine Cannabinoids Screen Neg NEGATIVE PROCEDURE(s): CXRP - CHEST PORTABLE REASON: sob/cp ORDER NUMBER(s): [id number], ACCESSION NUMBER(s): [id number] CHEST RADIOGRAPH Indication: sob/cp Technique: Single frontal view of the chest was obtained Comparison: None FINDINGS: Lines and Tubes: None Lungs: No focal consolidation. Pleura: No effusion. No pneumothorax. Cardiomediastinal contours: Cardiomegaly without findings of congestive failure. Correlate for possible cardiomyopathy or pericardial effusion. Bones: No acute osseous abnormality. IMPRESSION: 1. Cardiomegaly without congestive failure. Correlate for possible cardiomyopathy or pericardial effusion. Assessment Possible new onset CHF Cardiomegaly Small-moderate pericardial effusion - negative pulsus paradoxus Bilateral pulmonary nodule Transaminitis Morbid obesity Tobacco use Plan/Recommendation Plan/Recommendation (Dr. Perez ): - echocardiogram to evaluate cardiac function - closely monitor for cardiac tamponade - IV diuresis, daily weight, strict intake and output -monitor BP -monitor on telemetry - smoking cessation counseled -lifestyle modification with regular exercise, diet, and weight loss This medical document was created using an electronic medical record system with voice recognition software and computerized dictation system. Although this document has been carefully reviewed, there might still be some phonetic and typographical errors. Occasional wrong-word or ``sound-alike substitutions may have occurred due to the inherent limitations of voice recognition software. These areas are purely typographical due to imperfections of the software programs and do not reflect any compromise in the patient's medical care. Please read the chart carefully and recognize, using context, where these substitutions have occurred. Plan discussed with: Patient Plan discussed with: Patient NYHA Physical activity limitations: Class2(Slight)fatigue,sob Date of Service: Aug 17, 2024 Billing Provider: HUMAIRA PEREZ MD Cardiology Common Codes: CONSULT ONLY CELENA GRIJALVA ENGINE ASSEMBLER Aug 17, 2024 12:55
[2024-08-17 13:13] LABS: Triglycerides 66 mg/dL (< 150)
[2024-08-17 13:14] LABS: LDL Cholesterol 109 mg/dL (< 100)
[2024-08-17 13:15] LABS: Cholesterol 147 mg/dL (< 200)
[2024-08-17 13:17] LABS: HDL Cholesterol 33 mg/dL (40-59)
[2024-08-17] MEDS: FUROSEMIDE 40 MG/4 ML VIAL IV SCH (13:21)
--- NOTE | 2024-08-17 18:06 | DVHSR ---
APPROVED REPORT EXAM: Two-dimensional and M-mode echocardiogram with Doppler and color Doppler. Blood Pressure: 123/80 mmHg INDICATION Eval for cardiac function and ef RISK FACTORS Obesity: Height: 6' 2", Weight: 363 DIMENSIONS LVDd6.6 (3.8-5.7cm)LA (2D)5.1 (1.9-4.0cm)Aortic Root3.0 (2.0-3.7cm) LVDs5.8 (2.5-4.0cm)LA (MM) (1.9-4.0cm)Aortic Cusp Exc2.0 (1.5-2.0cm) EF (%) 25.0 (55-70%)Rt. Atrium6.1 (1.9-4.0cm)Asc. Aorta cm IVSd0.9 (0.7-1.1cm)RV (D) (1.8-2.4cm) PWd1.0 (0.7-1.1cm) Mitral Valve MitralMitral Stenosis E wave1.20m/sMV Mean GR.mmHg A wave0.80m/sMV Peak GR.mmHg E/A ratio1.52D MVAcm2 Aortic Valve Aortic ValveAortic Stenosis V10.50m/Annita Mean GR.3mmHg V21.20m/Annita Peak GR.6mmHg LVOT Diameter2.3 (1.8-2.4cm)Doppler AVA1.73cm2 Pulmonic Valve V20.40m/s Tricuspid Valve TR Velocity2.70m/s [id number] Conclusion REMARKABLY DILATED ALL CARDIAC CHAMBERS SEVERE LV AND RV HYPOKINESIS LV EF IS ONLY 20% GROSSLY NORMAL VALVES NO EFFUSION IT IS END STAGE DILATED CARDIOMYOPATHY
--- NOTE | 2024-08-17 22:40 | DVHPN2 ---
Subjective The patient is seen and examined at bedside. Still have some chest pain. Reviewed: Care Plan, H&P, Labs, Medications, Previous Orders, Radiology Changes from previous H/P or p: No Changes Eyes: No Pain, No Vision change, No Conjunctivae inflammation, No Eyelid inflammation, No Other, No Redness ENT: No Ear pain, No Ear discharge, No Nose pain, No Nose discharge, No Nose congestion, No Mouth pain, No Mouth swelling, No Throat pain, No Throat swelling, No Other Cardiovascular: Chest Pain; No Palpitations, No Orthopnea, No Paroxysmal Noc. Dyspnea, No Edema, No Lt Headedness, No Other Respiratory: No Cough, No Dry; Shortness of breath, SOB with excertion; No Wheezing, No Hemoptysis, No Pleuritic Pain, No Sputum, No Other Gastrointestinal: No Nausea, No Vomiting, No Abdominal Pain, No Diarrhea, No Constipation, No Melena, No Hematochezia, No Other Genitourinary: No Dysuria, No Frequency, No Incontinence, No Hematuria, No Retention, No Other Musculoskeletal: No other, No neck pain, No shoulder pain, No arm pain, No back pain, No hand pain, No leg pain, No foot pain Skin: No Rash, No Lesions, No Jaundice, No Bruising, No Other Objective Vitals Vital Signs Date Time Temp Pulse Resp B/P (MAP) Pulse Ox O2 Delivery O2 Flow Rate FiO2 08/17/24 21:07 103 117/84 08/17/24 21:00 97.5 18 100 97.5 08/17/24 20:00 Room Air* 0 21 Intake/Output Intake and Output 08/17/24 07:00 Intake Total 800 ml Output Total 3200 ml Balance -2400 ml Intake Oral 800 ml Output Urine Total 3200 ml General Appearance: Alert, Oriented X3, Cooperative, No acute distress HEENT: Atraumatic, PERRLA, EOMI, Mucous membr. moist/pink Neck: Supple Lungs: Clear to auscultation, Normal air movement Cardiovascular: Regular rate, Normal S1, Normal S2, No murmurs, Gallops, Rubs Abdomen: Normal bowel sounds, Soft, No tenderness Neuro: Cranial nerves 3-12 NL Psych/Mental Status: Mental status NL Medications Current Medications Medications Dose Ordered Sig/Bob Route Start Time Stop Time Status Last Admin Dose Admin Atorvastatin Calcium 20 mg HS PO 08/16/24 22:00 08/17/24 21:07 20 MG Metoprolol Tartrate 25 mg BID PO 08/16/24 22:00 08/17/24 21:07 25 MG Nitroglycerin 0.4 mg Q5MINP PRN SL 08/16/24 19:30 Aspirin 81 mg DAILY PO 08/17/24 10:00 08/17/24 09:30 81 MG Furosemide 40 mg DAILY IV 08/17/24 13:00 08/17/24 13:21 40 MG Laboratory Results Laboratory Tests 08/17/24 06:39 Chemistry Test 08/17/24 06:39 Albumin 3.5 g/dL (3.2-4.8) Calcium Level 9.4 mg/dL (8.7-10.4) Total Protein 5.7 g/dL (5.7-8.2) Lipid panel Test 08/17/24 06:39 Cholesterol Level 147 mg/dL (< 200) HDL Cholesterol 33 mg/dL (40-59) L Triglycerides Level 66 mg/dL (< 150) Cardiac Markers Test 08/17/24 06:39 B-Type Natriuretic Peptide 580.05 pg/mL (0-100) LFT Test 08/17/24 06:39 Alanine Aminotransferase (ALT) 58 U/L (7-40) H Alkaline Phosphatase 71 U/L (46-116) Aspartate Amino Transferase (AST) 36 U/L (13-40) Total Bilirubin 1.2 mg/dL (0.2-1.0) H Urinalysis Test 08/16/24 13:40 Urine Color Yellow (Yellow) Urine Clarity Clear (Clear) Urine pH 6.0 (5.0-9.0) Urine Specific [place] 1.014 (1.001-1.035) Urine Protein 1+ (Negative) H Urine Ketones Negative (Negative) Urine Blood Negative /uL (Negative) Urine Nitrite Negative (Negative) Urine Bilirubin Negative (Negative) Urine Urobilinogen 3 mg/dL (Negative) H Urine Leukocyte Esterase Negative /uL (Negative) Urine RBC <1 /hpf (0 - 3) Urine Microscopic WBC 2 /HPF (0-3) Urine Squamous Epithelial Cells None seen /hpf (<5) Urine Bacteria None seen /hpf (None Seen) Urine Glucose Normal mg/dL (Normal) Labs and/or images reviewed: Labs reviewed by me Assessment/Plan Assessment/Plan acute new onset congested heart failure with cardiomegaly acute chest pain r/o nstemi acute transaminitis likely from etoh use pt used to be chronic drinker last drink 1 yr ago acute ble edema acute homelessness pt sleeping in car chronic smoker hx of etoh abuse Continuing current management. Waiting for 2D echo. Waiting for truss puller helper to see the patient. Continuing to monitor electrolytes. Continuing with IV Lasix. Continuing with hypertensive medication. 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 Although this document has been carefully reviewed, there may still be some phonetic and typographical errors. These areas are purely typographical due to imperfections of the software programs, and do not reflect any compromise in the patient's medical care. Plan discussed with: Patient Date of Service: Aug 17, 2024 Billing Provider: ZAIDA CRAIG MD Common Visit Codes: [id number] INP/OBS CARE(HIGH) ZAIDA CRAIG MD Aug 17, 2024 22:40
--- NOTE | 2024-08-17 23:42 | DVHINCON2 ---
Date Seen: Aug 17, 2024 Referring Physician Favian SERRANO Reason for Consultation New onset CHF History of Present Illness This is a 29 year male without any significant past medical history presents to the ED with a complaint of shortness of breath x2 weeks. Symptoms is associated with sharp chest pain worse on exertion and inhalation, dyspnea, orthopnea, and bilateral lower extremity edema. In the emergency department the patient underwent a 12 lead ECG revealing sinus rhythm with prolonged QTC. D-DIMER 0.88, ALT 58. Chest x-ray showed cardiomegaly without congestive failure. Upon assessment, the patient denies dizziness, diaphoresis, or chest pain. Denies history of CAD or VT. Denies familiar history of cardiovascular disease. Patient was admitted to the hospital. I am asked to consult on this patient. Past Medical History As stated in HPI Past Surgical History Denies Family History: Patient reports no known family medical history. Allergies: Coded Allergies: NO KNOWN ALLERGIES (Unverified , 08/16/24) Home Meds No Active Prescriptions or Reported Meds Current Medications Current Medications Medications (Trade) Dose Ordered Sig/Bob Route PRN Reason Start Time Stop Time Status Last Admin Atorvastatin Calcium (Lipitor) 20 mg HS PO 08/16/24 22:00 08/16/24 23:32 Metoprolol Tartrate (Lopressor Tablet) 25 mg BID PO 08/16/24 22:00 08/17/24 09:30 Nitroglycerin (Ntrostat Sublingual) 0.4 mg Q5MINP PRN SL FOR CHEST PAIN 08/16/24 19:30 Aspirin 81 mg DAILY PO 08/17/24 10:00 08/17/24 09:30 Furosemide (Lasix Injection) 40 mg DAILY IV 08/17/24 13:00 08/17/24 13:21 Review of Systems Constitutional: No symptom reported Ears, Nose, & Throat: No symptom reported Eyes: No symptom reported Neurological: No symptoms reported Pulmonary/Respiratory: Shortness of breath Cardiovascular: Dyspnea, edema, chest pain Gastrointestinal: No symptom reported Genitourinary: No symptom reported Musculoskeletal: No symptom reported Skin: No symptom reported Psychiatric: No symptom reported Endocrine: No symptom reported Hemotologic/Lymphatic: No symptom reported Vital Signs Vital Signs Date Time Temp Pulse Resp B/P (MAP) Pulse Ox O2 Delivery O2 Flow Rate FiO2 08/17/24 13:21 116/78 08/17/24 11:56 97.6 80 17 97 97.6 08/17/24 08:00 Room Air* 0 21 Physical Exam GENERAL: Awake, alert, oriented. Obese. LUNGS: Clear. CARDIOVASCULAR: Heart sounds are good. ABDOMEN: Soft. Labs/Diagnostic Data Labs Test 08/17/24 06:39 08/16/24 23:53 08/16/24 13:46 08/16/24 13:40 Range/Units White Blood Count 5.9 4.4-10.8 10^3/uL Red Blood Count 4.83 4.5-5.90 10^6/uL Hemoglobin 13.9 13.5-17.5 g/dL Hematocrit 42.7 41.0-53.0 % Mean Corpuscular Volume 88.3 80.0-100.0 fL Mean Corpuscular Hemoglobin 28.7 28.0-32.0 pg Mean Corpuscular Hemoglobin Concent 32.5 32.0-36.0 g/dL Red Cell Distribution Width 15.4 H 11.8-14.3 % Platelet Count 235 140-450 10^3/uL Mean Platelet Volume 9.1 6.9-10.8 fL Neutrophils (%) (Auto) 54.8 37.0-80.0 % Lymphocytes (%) (Auto) 30.7 10.0-50.0 % Monocytes (%) (Auto) 8.7 0.0-12.0 % Eosinophils (%) (Auto) 5.0 0.0-7.0 % Basophils (%) (Auto) 0.8 0.0-2.0 % Neutrophils # (Auto) 3.2 1.6-8.6 10 ^3/uL Lymphocytes # (Auto) 1.8 0.4-5.4 10 ^3/uL Monocytes # (Auto) 0.5 0-1.3 10 ^3/uL Eosinophils # (Auto) 0.3 0-0.8 10 ^3/uL Basophils # (Auto) 0 0-0.2 10 ^3/uL Nucleated Red Blood Cells 0.2 % Sodium Level 141 136-145 mmol/L Potassium Level 4.0 3.5-5.1 mmol/L Chloride Level 106 98-107 mmol/L Carbon Dioxide Level 25 20-31 mmol/L Anion Gap 10 5-15 Blood Urea Nitrogen 11 9-23 mg/dL Creatinine 1.00 0.700-1.30 mg/dL Glomerular Filtration Rate Calc 104 >90 mL/min BUN/Creatinine Ratio 11.0 10.0-20.0 Serum Glucose 94 74-106 mg/dL Calcium Level 9.4 8.7-10.4 mg/dL Total Bilirubin 1.2 H 0.2-1.0 mg/dL Aspartate Amino Transferase (AST) 36 13-40 U/L Alanine Aminotransferase (ALT) 58 H 7-40 U/L Alkaline Phosphatase 71 46-116 U/L B-Type Natriuretic Peptide 580.05 0-100 pg/mL Total Protein 5.7 5.7-8.2 g/dL Albumin 3.5 3.2-4.8 g/dL Triglycerides Level 66 < 150 mg/dL Cholesterol Level 147 < 200 mg/dL LDL Cholesterol 109 H < 100 mg/dL HDL Cholesterol 33 L 40-59 mg/dL Troponin I High Sensitivity 42 </=54 ng/L Erythrocyte Sedimentation Rate 2 0-20 mm/hr D-Dimer, Quantitative 0.88 H 0.0-0.49 mg/L FEU Lactic Acid Level 1.1 0.4-2.0 mmol/L Magnesium Level 1.8 1.6-2.6 mg/dL C-Reactive Protein High Sensitivity 1.95 H <1.0 mg/dL Thyroid Stimulating Hormone (TSH) 2.02 0.55-4.78 uIU/mL Urine Color Yellow Yellow Urine Clarity Clear Clear Urine pH 6.0 5.0-9.0 Urine Specific [place] 1.014 1.001-1.035 Urine Protein 1+ H Negative Urine Ketones Negative Negative Urine Blood Negative Negative /uL Urine Nitrite Negative Negative Urine Bilirubin Negative Negative Urine Urobilinogen 3 H Negative mg/dL Urine Leukocyte Esterase Negative Negative /uL Urine RBC <1 0 - 3 /hpf Urine Microscopic WBC 2 0-3 /HPF Urine Squamous Epithelial Cells None seen <5 /hpf Urine Bacteria None seen None Seen /hpf Urine Glucose Normal Normal mg/dL Urine Opiates Screen Neg NEGATIVE Urine Fentanyl Screen Neg NEGATIVE Urine Barbiturates Screen Neg NEGATIVE Urine Phencyclidine Screen Neg NEGATIVE Urine Amphetamines Screen Neg NEGATIVE Urine Benzodiazepines Screen Neg NEGATIVE Urine Cocaine Screen Neg NEGATIVE Urine Cannabinoids Screen Neg NEGATIVE Assessment Possible new onset CHF. Cardiomegaly. Small-moderate pericardial effusion - negative pulsus paradoxus. Bilateral pulmonary nodule. Transaminitis. Morbid obesity. Tobacco use. Plan/Recommendation I agree with your ongoing assessment and care of plan. Patient has been seen by Karis Cota NP on my behalf, her and I discussed the plan with the patient. Echocardiogram to evaluate cardiac function. Closely monitor for cardiac tamponade. IV diuresis, daily weight, strict intake and output. Monitor BP. Monitor on telemetry. Smoking cessation counseled. Lifestyle modification with regular exercise, diet, and weight loss. Additional plan as per the hospital course. Plan discussed with: Patient NYHA Physical activity limitations: Class2(Slight)fatigue,sob Date of Service: Aug 17, 2024 Billing Provider: HUMAIRA PEREZ MD Cardiology Common Codes: [id number] INP/OBS CARE (High) Cardiology Consultation Codes: [id number] CONSULT <45MIN HUMAIRA PEREZ MD Aug 17, 2024 15:21
[2024-08-18] VITALS (8 sets, daily range): BP systolic 117–134; BP diastolic 69–88; PULSE 72–117; RESP 18–20; TEMP 97.3–98.5; O2SAT 96–99
--- NOTE | 2024-08-18 08:47 | ECG ---
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
[2024-08-18 09:57] LABS: Hepatitis B Surface Antigen Negative (Negative)
[2024-08-18 10:16] LABS: Hepatitis A Ab IgM Negative; Hepatitis B Core IgM Negative (Negative); Hepatitis C Antibody Negative (Negative)
--- NOTE | 2024-08-18 11:09 | ECG ---
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
--- NOTE | 2024-08-18 12:07 | DVHPN2 ---
Subjective The patient is seen and examined at bedside. Had some chest pain today. Reviewed: Care Plan, H&P, Labs, Medications, Previous Orders, Radiology Changes from previous H/P or p: No Changes Eyes: No Pain, No Vision change, No Conjunctivae inflammation, No Eyelid inflammation, No Other, No Redness ENT: No Ear pain, No Ear discharge, No Nose pain, No Nose discharge, No Nose congestion, No Mouth pain, No Mouth swelling, No Throat pain, No Throat swelling, No Other Cardiovascular: Chest Pain; No Palpitations, No Orthopnea, No Paroxysmal Noc. Dyspnea, No Edema, No Lt Headedness, No Other Respiratory: No Cough, No Dry; Shortness of breath, SOB with excertion; No Wheezing, No Hemoptysis, No Pleuritic Pain, No Sputum, No Other Gastrointestinal: No Nausea, No Vomiting, No Abdominal Pain, No Diarrhea, No Constipation, No Melena, No Hematochezia, No Other Genitourinary: No Dysuria, No Frequency, No Incontinence, No Hematuria, No Retention, No Other Musculoskeletal: No other, No neck pain, No shoulder pain, No arm pain, No back pain, No hand pain, No leg pain, No foot pain Skin: No Rash, No Lesions, No Jaundice, No Bruising, No Other Objective Vitals Vital Signs Date Time Temp Pulse Resp B/P (MAP) Pulse Ox O2 Delivery O2 Flow Rate FiO2 08/18/24 10:20 117/69 08/18/24 10:19 102 08/18/24 09:00 97.5 20 96 97.5 08/18/24 08:00 Room Air* 0 21 Intake/Output Intake and Output 08/18/24 07:00 Intake Total 2600 ml Output Total 2800 ml Balance -200 ml Intake Oral 2600 ml Output Urine Total 2800 ml # Bowel Movements 1 General Appearance: Alert, Oriented X3, Cooperative, No acute distress HEENT: Atraumatic, PERRLA, EOMI, Mucous membr. moist/pink Neck: Supple Lungs: Clear to auscultation, Normal air movement Cardiovascular: Regular rate, Normal S1, Normal S2, No murmurs, Gallops, Rubs Abdomen: Normal bowel sounds, Soft, No tenderness, No hepatospenomegaly Neuro: Cranial nerves 3-12 NL Psych/Mental Status: Mental status NL Medications Current Medications Medications Dose Ordered Sig/Bob Route Start Time Stop Time Status Last Admin Dose Admin Atorvastatin Calcium 20 mg HS PO 08/16/24 22:00 08/17/24 21:07 20 MG Metoprolol Tartrate 25 mg BID PO 08/16/24 22:00 08/18/24 10:19 25 MG Nitroglycerin 0.4 mg Q5MINP PRN SL 08/16/24 19:30 Aspirin 81 mg DAILY PO 08/17/24 10:00 08/18/24 10:20 81 MG Furosemide 40 mg DAILY IV 08/17/24 13:00 08/18/24 10:20 40 MG Laboratory Results Laboratory Tests 08/17/24 06:39 Cardiac Markers Test 08/18/24 05:26 B-Type Natriuretic Peptide 440.18 pg/mL (0-100) Urinalysis Test 08/16/24 13:40 Urine Color Yellow (Yellow) Urine Clarity Clear (Clear) Urine pH 6.0 (5.0-9.0) Urine Specific [place] 1.014 (1.001-1.035) Urine Protein 1+ (Negative) H Urine Ketones Negative (Negative) Urine Blood Negative /uL (Negative) Urine Nitrite Negative (Negative) Urine Bilirubin Negative (Negative) Urine Urobilinogen 3 mg/dL (Negative) H Urine Leukocyte Esterase Negative /uL (Negative) Urine RBC <1 /hpf (0 - 3) Urine Microscopic WBC 2 /HPF (0-3) Urine Squamous Epithelial Cells None seen /hpf (<5) Urine Bacteria None seen /hpf (None Seen) Urine Glucose Normal mg/dL (Normal) Labs and/or images reviewed: Labs reviewed by me Assessment/Plan Assessment/Plan acute new onset congested heart failure with cardiomegaly acute chest pain r/o nstemi acute transaminitis likely from etoh use pt used to be chronic drinker last drink 1 yr ago acute ble edema acute homelessness pt sleeping in car chronic smoker hx of etoh abuse Dilated cardiomyopathy with EF only 20% per echo Continuing current management. Appreciate Cardiology input Per echo patient also had pericardial effusion, cardiology recommend to monitor for cardiac tamponade Continuing to monitor electrolytes. Continuing with IV Lasix. Continuing with hypertensive medication. 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 Although this document has been carefully reviewed, there may still be some phonetic and typographical errors. These areas are purely typographical due to imperfections of the software programs, and do not reflect any compromise in the patient's medical care. Plan discussed with: Patient Date of Service: Aug 18, 2024 Billing Provider: ZAIDA CRAIG MD Common Visit Codes: [id number] INP/OBS CARE(HIGH) ZAIDA CRAIG MD Aug 18, 2024 12:07
--- NOTE | 2024-08-18 23:15 | DVHPN2 ---
Progress Note - Dictate Date Seen: Aug 18, 2024 Medical Necessity Reason Pt with a Central, PICC or Fol: No Subjective Patient was seen and evaluated in follow up. Patient is complaining of chest pain. Troponin remains negative. Echocardiogram is ordered. Telemetry reviewed. vital signs Vital Sign Date Time Temp Pulse Resp B/P (MAP) Pulse Ox O2 Delivery O2 Flow Rate FiO2 08/18/24 21:53 95 113/72 08/18/24 20:55 98.5 18 96 98.5 08/18/24 20:00 Room Air* 0 21 Total Intake and Output 08/17/24 08/17/24 08/18/24 15:00 23:00 07:00 Intake Total 1800 ml 800 ml Output Total 2300 ml 500 ml Balance -500 ml 300 ml medications Current Medications Medications Dose Ordered Sig/Bob Route Start Time Stop Time Status Last Admin Dose Admin Atorvastatin Calcium 20 mg HS PO 08/16/24 22:00 08/18/24 20:53 20 MG Metoprolol Tartrate 25 mg BID PO 08/16/24 22:00 08/18/24 20:53 25 MG Nitroglycerin 0.4 mg Q5MINP PRN SL 08/16/24 19:30 Aspirin 81 mg DAILY PO 08/17/24 10:00 08/18/24 10:20 81 MG Furosemide 40 mg DAILY IV 08/17/24 13:00 08/18/24 10:20 40 MG objective GENERAL: Awake, alert, oriented. Obese. LUNGS: Clear. CARDIOVASCULAR: Heart sounds are good. ABDOMEN: Soft. laboratory and microbiology Laboratory Tests 08/17/24 06:39 Test 08/17/24 06:39 Range/Units Serum Glucose 94 74-106 mg/dL Problem List Possible new onset CHF. Cardiomegaly. Small-moderate pericardial effusion - negative pulsus paradoxus. Bilateral pulmonary nodule. Transaminitis. Morbid obesity. Tobacco use. Assessment/Plan Continued all current supportive medical care. Echocardiogram to evaluate cardiac function. Aspirin, Lipitor, Metoprolol. Diuretics with Lasix. Nitro SL. Additional plan as per the hospital course. Plan discussed with: Patient HUMAIRA PEREZ MD Aug 18, 2024 23:15
[2024-08-19] VITALS (7 sets, daily range): BP systolic 120–138; BP diastolic 74–92; PULSE 66–101; RESP 16–18; TEMP 97.7–98.5; O2SAT 97–100
[2024-08-19 05:24] LABS: Basophils # (auto) 0.1 10 ^3/uL (0-0.2); Eosinophils # (auto) 0.3 10 ^3/uL (0-0.8); Eosinophils % (auto) 3.9 % (0.0-7.0); Hematocrit 43.9 % (41.0-53.0); Hemoglobin 14.3 g/dL (13.5-17.5); Lymphocytes # (auto) 2.9 10 ^3/uL (0.4-5.4); Lymphocytes % (auto) 42.3 % (10.0-50.0); Mean Corpuscular Hemoglobin 28.7 pg (28.0-32.0); Mean Corpuscular Hgb Conc. 32.7 g/dL (32.0-36.0); Mean Corpuscular Volume 87.7 fL (80.0-100.0); Monocytes # (auto) 0.7 10 ^3/uL (0-1.3); Monocytes % (auto) 9.7 % (0.0-12.0); Neutrophils % (auto) 43.1 % (37.0-80.0); Nucleated Red Blood Cells % 0.1 %; Platelet Count (auto) 247 10^3/uL (140-450); Red Cell Distribution Width 14.8 % (11.8-14.3); White Blood Cell 6.9 10^3/uL (4.4-10.8)
[2024-08-19 05:33] LABS: Anion Gap 8 (5-15); Carbon Dioxide 24 mmol/L (20-31); Chloride 106 mmol/L (98-107); Sodium 138 mmol/L (136-145)
[2024-08-19 05:35] LABS: Calcium 9.4 mg/dL (8.7-10.4)
[2024-08-19 05:39] LABS: BUN/Creatinine Ratio 11.5 (10.0-20.0); Blood Urea Nitrogen 12 mg/dL (9-23); Glucose 90 mg/dL (74-106)
--- NOTE | 2024-08-19 20:15 | DVHPN2 ---
Reviewed: Care Plan, H&P, Labs, Medications, Previous Orders, Radiology Changes from previous H/P or p: No Changes General: Per HPI Eyes: No Pain, No Vision change, No Conjunctivae inflammation, No Eyelid inflammation, No Other, No Redness ENT: No Ear pain, No Ear discharge, No Nose pain, No Nose discharge, No Nose congestion, No Mouth pain, No Mouth swelling, No Throat pain, No Throat swelling, No Other Cardiovascular: Chest Pain; No Palpitations, No Orthopnea, No Paroxysmal Noc. Dyspnea, No Edema, No Lt Headedness, No Other Respiratory: No Cough, No Dry; Shortness of breath, SOB with excertion; No Wheezing, No Hemoptysis, No Pleuritic Pain, No Sputum, No Other Gastrointestinal: No Nausea, No Vomiting, No Abdominal Pain, No Diarrhea, No Constipation, No Melena, No Hematochezia, No Other Genitourinary: No Dysuria, No Frequency, No Incontinence, No Hematuria, No Retention, No Other Musculoskeletal: No other, No neck pain, No shoulder pain, No arm pain, No back pain, No hand pain, No leg pain, No foot pain Skin: No Rash, No Lesions, No Jaundice, No Bruising, No Other Objective Vitals Vital Signs Date Time Temp Pulse Resp B/P (MAP) Pulse Ox O2 Delivery O2 Flow Rate FiO2 08/19/24 17:00 97.7 91 16 123/92 (102) 99 97.7 08/19/24 08:30 Room Air* 0 21 Intake/Output Intake and Output 08/19/24 07:00 Intake Total 3100 ml Output Total 1000 ml Balance 2100 ml Intake Oral 3100 ml Output Urine Total 1000 ml # Bowel Movements 1 General Appearance: Alert, Oriented X3, Cooperative, No acute distress HEENT: Atraumatic, PERRLA, EOMI, Mucous membr. moist/pink Neck: Supple Lungs: Clear to auscultation, Normal air movement Cardiovascular: Regular rate, Normal S1, Normal S2, No murmurs, Gallops, Rubs Abdomen: Normal bowel sounds, Soft, No tenderness, No hepatospenomegaly Neuro: Cranial nerves 3-12 NL Psych/Mental Status: Mental status NL Medications Current Medications Medications Dose Ordered Sig/Bob Route Start Time Stop Time Status Last Admin Dose Admin Atorvastatin Calcium 20 mg HS PO 08/16/24 22:00 08/18/24 20:53 20 MG Metoprolol Tartrate 25 mg BID PO 08/16/24 22:00 08/19/24 10:21 25 MG Nitroglycerin 0.4 mg Q5MINP PRN SL 08/16/24 19:30 Aspirin 81 mg DAILY PO 08/17/24 10:00 08/19/24 10:19 81 MG Furosemide 40 mg DAILY IV 08/17/24 13:00 08/19/24 10:21 40 MG Laboratory Results Laboratory Tests 08/19/24 04:42 Chemistry Test 08/19/24 04:42 Calcium Level 9.4 mg/dL (8.7-10.4) Urinalysis Test 08/16/24 13:40 Urine Color Yellow (Yellow) Urine Clarity Clear (Clear) Urine pH 6.0 (5.0-9.0) Urine Specific [place] 1.014 (1.001-1.035) Urine Protein 1+ (Negative) H Urine Ketones Negative (Negative) Urine Blood Negative /uL (Negative) Urine Nitrite Negative (Negative) Urine Bilirubin Negative (Negative) Urine Urobilinogen 3 mg/dL (Negative) H Urine Leukocyte Esterase Negative /uL (Negative) Urine RBC <1 /hpf (0 - 3) Urine Microscopic WBC 2 /HPF (0-3) Urine Squamous Epithelial Cells None seen /hpf (<5) Urine Bacteria None seen /hpf (None Seen) Urine Glucose Normal mg/dL (Normal) Assessment/Plan Assessment/Plan acute new onset congested heart failure with cardiomegaly acute chest pain r/o nstemi acute transaminitis likely from etoh use pt used to be chronic drinker last drink 1 yr ago acute ble edema acute homelessness pt sleeping in car chronic smoker hx of etoh abuse Dilated cardiomyopathy with EF only 20% per echo continue with current care per cardiology recommendation barrier to d/c: homelessness Plan discussed with: Patient Date of Service: Aug 19, 2024 Billing Provider: SENDY BOWMAN DO Common Visit Codes: [id number] INP/OBS CARE(HIGH) SENDY BOWMAN DO Aug 19, 2024 20:15
--- NOTE | 2024-08-19 22:12 | DVHPN2 ---
Progress Note - Dictate Date Seen: Aug 19, 2024 Medical Necessity Reason Pt with a Central, PICC or Fol: No Subjective Patient was seen and evaluated in follow up. Patient report improvement in chest pain. Echocardiogram shows an EF of 20%, consistent with end stage dilated cardiomyopathy. Labs reviewed and are unremarkable. Telemetry reviewed. vital signs Vital Sign Date Time Temp Pulse Resp B/P (MAP) Pulse Ox O2 Delivery O2 Flow Rate FiO2 08/19/24 21:20 101 138/76 08/19/24 21:00 98.5 18 100 98.5 08/19/24 20:00 Room Air* 0 21 Total Intake and Output 08/18/24 08/18/24 08/19/24 15:00 23:00 07:00 Intake Total 2500 ml 600 ml Output Total 1000 ml Balance 2500 ml -400 ml medications Current Medications Medications Dose Ordered Sig/Bob Route Start Time Stop Time Status Last Admin Dose Admin Atorvastatin Calcium 20 mg HS PO 08/16/24 22:00 08/19/24 21:19 20 MG Metoprolol Tartrate 25 mg BID PO 08/16/24 22:00 08/19/24 21:20 25 MG Nitroglycerin 0.4 mg Q5MINP PRN SL 08/16/24 19:30 Aspirin 81 mg DAILY PO 08/17/24 10:00 08/19/24 10:19 81 MG Furosemide 40 mg DAILY IV 08/17/24 13:00 08/19/24 10:21 40 MG objective GENERAL: Awake, alert, oriented. Obese. LUNGS: Clear. CARDIOVASCULAR: Heart sounds are good. ABDOMEN: Soft. laboratory and microbiology Laboratory Tests 08/19/24 04:42 Test 08/19/24 04:42 Range/Units Serum Glucose 90 74-106 mg/dL Problem List Possible new onset CHF. Cardiomegaly. Small-moderate pericardial effusion - negative pulsus paradoxus. Bilateral pulmonary nodule. Transaminitis. Morbid obesity. Tobacco use. End stage dilated cardiomyopathy. Assessment/Plan Continued all current supportive medical care. Aspirin, Lipitor, Metoprolol. Diuretics with Lasix. Nitro SL. Additional plan as per the hospital course. Dietary Evaluation Review Comments: 1. MVI w/ minerals 1 tab daily 2. Refer outpatient CDCES/Dietitian for weight management 3. Continue current plan of care Expected Outcomes/Goals: To improve fluid accumulation status FU 3-5 days Plan discussed with: Patient PEREZ,MUKESHCHANDRA M MD Aug 19, 2024 22:12
[2024-08-20] VITALS (7 sets, daily range): BP systolic 120–140; BP diastolic 66–91; PULSE 62–103; RESP 18–20; TEMP 98–98.5; O2SAT 94–100
--- NOTE | 2024-08-20 21:24 | DVHPN2 ---
Reviewed: Care Plan, H&P, Labs, Medications, Previous Orders, Radiology Changes from previous H/P or p: No Changes General: Per HPI Eyes: No Pain, No Vision change, No Conjunctivae inflammation, No Eyelid inflammation, No Other, No Redness ENT: No Ear pain, No Ear discharge, No Nose pain, No Nose discharge, No Nose congestion, No Mouth pain, No Mouth swelling, No Throat pain, No Throat swelling, No Other Cardiovascular: Chest Pain; No Palpitations, No Orthopnea, No Paroxysmal Noc. Dyspnea, No Edema, No Lt Headedness, No Other Respiratory: No Cough, No Dry; Shortness of breath, SOB with excertion; No Wheezing, No Hemoptysis, No Pleuritic Pain, No Sputum, No Other Gastrointestinal: No Nausea, No Vomiting, No Abdominal Pain, No Diarrhea, No Constipation, No Melena, No Hematochezia, No Other Genitourinary: No Dysuria, No Frequency, No Incontinence, No Hematuria, No Retention, No Other Musculoskeletal: No other, No neck pain, No shoulder pain, No arm pain, No back pain, No hand pain, No leg pain, No foot pain Skin: No Rash, No Lesions, No Jaundice, No Bruising, No Other Objective Vitals Vital Signs Date Time Temp Pulse Resp B/P (MAP) Pulse Ox O2 Delivery O2 Flow Rate FiO2 08/20/24 21:00 98.1 89 18 128/91 (103) 98 98.1 08/20/24 20:00 Room Air* 0 21 Intake/Output Intake and Output 08/20/24 07:00 Intake Total 1800 ml Output Total 3250 ml Balance -1450 ml Intake Oral 1800 ml Output Urine Total 3250 ml # Bowel Movements 2 General Appearance: Alert, Oriented X3, Cooperative, No acute distress HEENT: Atraumatic, PERRLA, EOMI, Mucous membr. moist/pink Neck: Supple Lungs: Clear to auscultation, Normal air movement Cardiovascular: Regular rate, Normal S1, Normal S2, No murmurs, Gallops, Rubs Abdomen: Normal bowel sounds, Soft, No tenderness, No hepatospenomegaly Neuro: Cranial nerves 3-12 NL Psych/Mental Status: Mental status NL Medications Current Medications Medications Dose Ordered Sig/Bob Route Start Time Stop Time Status Last Admin Dose Admin Atorvastatin Calcium 20 mg HS PO 08/16/24 22:00 08/19/24 21:19 20 MG Metoprolol Tartrate 25 mg BID PO 08/16/24 22:00 08/20/24 09:45 25 MG Nitroglycerin 0.4 mg Q5MINP PRN SL 08/16/24 19:30 Aspirin 81 mg DAILY PO 08/17/24 10:00 08/20/24 09:46 81 MG Furosemide 40 mg DAILY IV 08/17/24 13:00 08/20/24 09:45 40 MG Laboratory Results Laboratory Tests 08/19/24 04:42 Urinalysis Test 08/16/24 13:40 Urine Color Yellow (Yellow) Urine Clarity Clear (Clear) Urine pH 6.0 (5.0-9.0) Urine Specific [place] 1.014 (1.001-1.035) Urine Protein 1+ (Negative) H Urine Ketones Negative (Negative) Urine Blood Negative /uL (Negative) Urine Nitrite Negative (Negative) Urine Bilirubin Negative (Negative) Urine Urobilinogen 3 mg/dL (Negative) H Urine Leukocyte Esterase Negative /uL (Negative) Urine RBC <1 /hpf (0 - 3) Urine Microscopic WBC 2 /HPF (0-3) Urine Squamous Epithelial Cells None seen /hpf (<5) Urine Bacteria None seen /hpf (None Seen) Urine Glucose Normal mg/dL (Normal) Labs and/or images reviewed: Labs reviewed by me, Image(s) reviewed by me Assessment/Plan Assessment/Plan acute new onset congested heart failure with cardiomegaly acute chest pain r/o nstemi acute transaminitis likely from etoh use pt used to be chronic drinker last drink 1 yr ago acute ble edema acute homelessness pt sleeping in car chronic smoker hx of etoh abuse Dilated cardiomyopathy with EF only 20% per echo continue with current care per cardiology recommendation barrier to d/c: homelessness Plan discussed with: Patient Date of Service: Aug 20, 2024 Billing Provider: SENDY BOWMAN DO Common Visit Codes: [id number] INP/OBS CARE(HIGH) SENDY BOWMAN DO Aug 20, 2024 21:23
--- NOTE | 2024-08-20 23:52 | DVHPN2 ---
Progress Note - Dictate Date Seen: Aug 20, 2024 Medical Necessity Reason Pt with a Central, PICC or Fol: No Subjective Patient was seen and evaluated in follow up. No overnight events. Patient reports chest pain has resolved. Patient denies any new complaints today. Telemetry reviewed. vital signs Vital Sign Date Time Temp Pulse Resp B/P (MAP) Pulse Ox O2 Delivery O2 Flow Rate FiO2 08/20/24 09:45 131/71 08/20/24 09:45 87 08/20/24 09:00 98.1 20 97 98.1 08/20/24 07:30 Room Air* 0 21 Total Intake and Output 08/19/24 08/19/24 08/20/24 15:00 23:00 07:00 Intake Total 1100 ml 700 ml Output Total 2150 ml 1100 ml Balance -1050 ml -400 ml medications Current Medications Medications Dose Ordered Sig/Bob Route Start Time Stop Time Status Last Admin Dose Admin Atorvastatin Calcium 20 mg HS PO 08/16/24 22:00 08/19/24 21:19 20 MG Metoprolol Tartrate 25 mg BID PO 08/16/24 22:00 08/20/24 09:45 25 MG Nitroglycerin 0.4 mg Q5MINP PRN SL 08/16/24 19:30 Aspirin 81 mg DAILY PO 08/17/24 10:00 08/20/24 09:46 81 MG Furosemide 40 mg DAILY IV 08/17/24 13:00 08/20/24 09:45 40 MG objective GENERAL: Awake, alert, oriented. Obese. LUNGS: Clear. CARDIOVASCULAR: Heart sounds are good. ABDOMEN: Soft. laboratory and microbiology Laboratory Tests 08/19/24 04:42 Test 08/19/24 04:42 Range/Units Serum Glucose 90 74-106 mg/dL Problem List Possible new onset CHF. Cardiomegaly. Small-moderate pericardial effusion - negative pulsus paradoxus. Bilateral pulmonary nodule. Transaminitis. Morbid obesity. Tobacco use. End stage dilated cardiomyopathy. Assessment/Plan Continued all current supportive medical care. Aspirin, Lipitor, Metoprolol. Diuretics with Lasix. Nitro SL. Additional plan as per the hospital course. Dietary Evaluation Review Comments: 1. MVI w/ minerals 1 tab daily 2. Refer outpatient [facility]/Dietitian for weight management 3. Continue current plan of care Expected Outcomes/Goals: To improve fluid accumulation status FU 3-5 days Plan discussed with: Patient HUMAIRA PEREZ MD Aug 20, 2024 13:17
[2024-08-21] VITALS (7 sets, daily range): BP systolic 120–129; BP diastolic 77–91; PULSE 87–93; RESP 17–19; TEMP 97.8–98; O2SAT 95–99
[2024-08-21] MEDS ORDERED: MET25T PO (13:06)
[2024-08-21] MEDS ORDERED: FURO1TAB31 PO (13:06)
[2024-08-21] MEDS ORDERED: ATOR20TA50 PO (13:06)
--- NOTE | 2024-08-21 23:54 | DVHPN2 ---
Progress Note - Dictate Date Seen: Aug 21, 2024 Medical Necessity Reason Pt with a Central, PICC or Fol: No Subjective Patient was seen and evaluated in follow up. Patient has no new complaints at this time. Patient denies any cardiac symptoms. Patient is cardiac stable for discharge. Telemetry reviewed. vital signs Vital Sign Date Time Temp Pulse Resp B/P (MAP) Pulse Ox O2 Delivery O2 Flow Rate FiO2 08/21/24 09:28 124/84 08/21/24 09:28 89 08/21/24 09:00 98.0 18 98 98.0 08/21/24 08:05 Room Air* 0 21 Total Intake and Output 08/20/24 08/20/24 08/21/24 15:00 23:00 07:00 Intake Total 1540 ml 850 ml Output Total 1100 ml 5 ml Balance 440 ml 845 ml medications Current Medications Medications Dose Ordered Sig/Bob Route Start Time Stop Time Status Last Admin Dose Admin Atorvastatin Calcium 20 mg HS PO 08/16/24 22:00 08/20/24 22:03 20 MG Metoprolol Tartrate 25 mg BID PO 08/16/24 22:00 08/21/24 09:28 25 MG Nitroglycerin 0.4 mg Q5MINP PRN SL 08/16/24 19:30 Aspirin 81 mg DAILY PO 08/17/24 10:00 08/21/24 09:28 81 MG Furosemide 40 mg DAILY IV 08/17/24 13:00 08/21/24 09:28 40 MG objective GENERAL: Awake, alert, oriented. Obese. LUNGS: Clear. CARDIOVASCULAR: Heart sounds are good. ABDOMEN: Soft. laboratory and microbiology Laboratory Tests 08/19/24 04:42 Test 08/19/24 04:42 Range/Units Serum Glucose 90 74-106 mg/dL Problem List Possible new onset CHF. Cardiomegaly. Small-moderate pericardial effusion - negative pulsus paradoxus. Bilateral pulmonary nodule. Transaminitis. Morbid obesity. Tobacco use. End stage dilated cardiomyopathy. Assessment/Plan Continued all current supportive medical care. Aspirin, Lipitor, Metoprolol. Diuretics with Lasix. Nitro SL. Additional plan as per the hospital course. Dietary Evaluation Review Comments: 1. MVI w/ minerals 1 tab daily 2. Refer outpatient [facility]/Dietitian for weight management 3. Continue current plan of care Expected Outcomes/Goals: To improve fluid accumulation status FU 3-5 days Plan discussed with: Patient HUMAIRA PEREZ MD Aug 21, 2024 13:15
--- NOTE | 2024-08-22 11:48 | DVHDS2 ---
Discharge Summary Date of Admission Aug 16, 2024 at 19:18 Date of Discharge: Aug 21, 2024 Labs/Diagnostic Data: Laboratory Results Test 08/19/24 04:42 08/18/24 13:54 08/18/24 05:26 08/17/24 06:39 White Blood Count 6.9 10^3/uL (4.4-10.8) Red Blood Count 5.00 10^6/uL (4.5-5.90) Hemoglobin 14.3 g/dL (13.5-17.5) Hematocrit 43.9 % (41.0-53.0) Mean Corpuscular Volume 87.7 fL (80.0-100.0) Mean Corpuscular Hemoglobin 28.7 pg (28.0-32.0) Mean Corpuscular Hemoglobin Concent 32.7 g/dL (32.0-36.0) Red Cell Distribution Width 14.8 % (11.8-14.3) Platelet Count 247 10^3/uL (140-450) Mean Platelet Volume 9.0 fL (6.9-10.8) Neutrophils (%) (Auto) 43.1 % (37.0-80.0) Lymphocytes (%) (Auto) 42.3 % (10.0-50.0) Monocytes (%) (Auto) 9.7 % (0.0-12.0) Eosinophils (%) (Auto) 3.9 % (0.0-7.0) Basophils (%) (Auto) 1.0 % (0.0-2.0) Neutrophils # (Auto) 3.0 10 ^3/uL (1.6-8.6) Lymphocytes # (Auto) 2.9 10 ^3/uL (0.4-5.4) Monocytes # (Auto) 0.7 10 ^3/uL (0-1.3) Eosinophils # (Auto) 0.3 10 ^3/uL (0-0.8) Basophils # (Auto) 0.1 10 ^3/uL (0-0.2) Nucleated Red Blood Cells 0.1 % Sodium Level 138 mmol/L (136-145) Potassium Level 4.0 mmol/L (3.5-5.1) Chloride Level 106 mmol/L (98-107) Carbon Dioxide Level 24 mmol/L (20-31) Anion Gap 8 (5-15) Blood Urea Nitrogen 12 mg/dL (9-23) Creatinine 1.04 mg/dL (0.700-1.30) Glomerular Filtration Rate Calc 99 mL/min (>90) BUN/Creatinine Ratio 11.5 (10.0-20.0) Serum Glucose 90 mg/dL (74-106) Calcium Level 9.4 mg/dL (8.7-10.4) Troponin I High Sensitivity 24 ng/L (</=54) B-Type Natriuretic Peptide 440.18 pg/mL (0-100) Total Bilirubin 1.2 mg/dL (0.2-1.0) Aspartate Amino Transferase (AST) 36 U/L (13-40) Alanine Aminotransferase (ALT) 58 U/L (7-40) Alkaline Phosphatase 71 U/L (46-116) Total Protein 5.7 g/dL (5.7-8.2) Albumin 3.5 g/dL (3.2-4.8) Triglycerides Level 66 mg/dL (< 150) Cholesterol Level 147 mg/dL (< 200) LDL Cholesterol 109 mg/dL (< 100) HDL Cholesterol 33 mg/dL (40-59) Test 08/16/24 13:46 08/16/24 13:40 Erythrocyte Sedimentation Rate 2 mm/hr (0-20) D-Dimer, Quantitative 0.88 mg/L FEU (0.0-0.49) Lactic Acid Level 1.1 mmol/L (0.4-2.0) Magnesium Level 1.8 mg/dL (1.6-2.6) C-Reactive Protein High Sensitivity 1.95 mg/dL (<1.0) Thyroid Stimulating Hormone (TSH) 2.02 uIU/mL (0.55-4.78) Hepatitis A IgM Antibody Negative Hepatitis B Surface Antigen Negative (Negative) Hepatitis B Core IgM Antibody Negative (Negative) Hepatitis C Antibody Negative (Negative) Urine Color Yellow (Yellow) Urine Clarity Clear (Clear) Urine pH 6.0 (5.0-9.0) Urine Specific [place] 1.014 (1.001-1.035) Urine Protein 1+ (Negative) Urine Ketones Negative (Negative) Urine Blood Negative /uL (Negative) Urine Nitrite Negative (Negative) Urine Bilirubin Negative (Negative) Urine Urobilinogen 3 mg/dL (Negative) Urine Leukocyte Esterase Negative /uL (Negative) Urine RBC <1 /hpf (0 - 3) Urine Microscopic WBC 2 /HPF (0-3) Urine Squamous Epithelial Cells None seen /hpf (<5) Urine Bacteria None seen /hpf (None Seen) Urine Glucose Normal mg/dL (Normal) Urine Opiates Screen Neg (NEGATIVE) Urine Fentanyl Screen Neg (NEGATIVE) Urine Barbiturates Screen Neg (NEGATIVE) Urine Phencyclidine Screen Neg (NEGATIVE) Urine Amphetamines Screen Neg (NEGATIVE) Urine Benzodiazepines Screen Neg (NEGATIVE) Urine Cocaine Screen Neg (NEGATIVE) Urine Cannabinoids Screen Neg (NEGATIVE) Other Laboratory Tests 08/19/24 04:42 Brief Hx & Hospital Course: acute new onset congested heart failure with cardiomegaly acute chest pain r/o nstemi acute transaminitis likely from etoh use pt used to be chronic drinker last drink 1 yr ago acute ble edema acute homelessness pt sleeping in car chronic smoker hx of etoh abuse Dilated cardiomyopathy with EF only 20% per echo continue with current care per cardiology recommendation barrier to d/c: homelessness discharged to self care Condition at Discharge: Fair Final Diagnosis/Problems List see above Discharge Disposition: Home Discharge Instruct/Medications Diet: Cardiac 2g Na,low cholest Activity: No Restrictions, As Tolerated Discharge Statement: "Patient was advised to return to the ER or call 911 if any headaches, dizziness, shortness of breath, chest pain, abdominal pain, bleeding, fevers, or worsening of medical condition. Patient was counseled about treatment plan, medications, possible side effects, patientverbalized understanding. All questions were answered to the best of my ability. This discharge took greater then 30 minutes in planning, reviewing documentation, counseling the patient, and discussing with other team members." ASSESSMENT ASSESSMENT Assessment Date of Service: Aug 21, 2024 Billing Provider: SNEDY BOWMAN DO Common Visit Codes: 29843-SXB/OBS DISCH DAY >30min SENDY BOWMAN DO Aug 22, 2024 11:48
== END 2024-08-21 14:56 | disposition home or self-care (01) | DRG 190 ==
LOC: ER 13:30 → OVERFLOW 19:18 → TELE-WESTW 22:30
PROVIDERS: ADMIT Internal Medicine; ATTEND Internal Medicine
DX: I21.4 Non-ST elevation (NSTEMI) myocardial infarction (principal); I31.39 Other pericardial effusion (noninflammatory); I42.0 Dilated cardiomyopathy; I11.0 Hypertensive heart disease with heart failure; I50.9 Heart failure, unspecified; Z59.02 Unsheltered homelessness; Z68.42 Body mass index [BMI] 45.0-49.9, adult; R74.01 Elevation of levels of liver transaminase levels; E66.01 Morbid (severe) obesity due to excess calories; F17.200 Nicotine dependence, unspecified, uncomplicated; Z71.6 Tobacco abuse counseling; Z79.899 Other long term (current) drug therapy
CPT/HCPCS: 36415; 71045; 71275; 76705; 80048; 80053; 80061; 80074; 80307; 81001; 83605; 83735; 83880; 84443; 84484; 85025; 85379; 85652; 86141; 93005; 93306; 93970; 96374; 96375; 99291; G0378